=== PATIENT | male | born 1975 | race Caucasian/White ===

== ENCOUNTER → 2020-05-13 09:13 | Outpatient (CLI) | payer OTHER, SELFPAY ==
--- NOTE | ~2020-05-13 | XR_ITS ---
EXAMINATION: XR abdomen/kub 1V DATE: 05/13/2020 09:57 INDICATION: Abdominal pain. TECHNIQUE: A supine view of the abdomen on 2 radiographs was obtained. COMPARISON: None. FINDINGS: There are no dilated loops of bowel. There is a small volume of stool in the colon. There a re surgical clips from right inguinal hernia repair. IMPRESSION: 1. Normal bowel gas pattern. Reviewed, dictated and finalized at location B.
--- NOTE | ~2020-05-13 | US_ITS ---
EXAMINATION: US abdomen complete EXAM DATE: 05/13/2020 09:57 INDICATION: Abdominal pain, fullness. Rule out mass. TECHNIQUE: Multiple grayscale and Doppler images of the complete abdomen were obtained (by a technolo gist who performed the scan) and subsequently reviewed. There is no prior study for comparison. FINDINGS: Scanning was performed and reported area of discomfort, umbilical region. No abnormality i dentified at that location. The abdominal aorta is normal in caliber. Visualized portion IVC is patent. The pancreatic head a nd body are normal in appearance. The pancreatic tail is not visualized. The liver has normal echogenicity and contour. There are no focal liver lesions identified. There is no evidence of intrahepatic biliary duct dilation. Portal venous flow was seen in the hepatopedal , normal direction and has normal Doppler waveform. Common bile duct measures 4 mm, which is normal. The gallbladder wall is normal in thickness, with ex pected amount of distention. No sonographic evidence of pericholecystic fluid. There is no cholelit hiases. Technologist performing exam reports patient did not demonstrate sonographic Lara's sign. Please note that this sign is less reliable in patients who have received pain medication. Right kidney: There is normal contour and echogenicity. It measures 10.1 x 5.2 x 6.3 centimeters. There are no focal renal lesions identified. There is no hydronephrosis. Left kidney: There is normal contour and echogenicity. It measures 11.1 x 6.0 x 5.6 centimeters. T here are no focal renal lesions identified. There is no hydronephrosis. The spleen measures 12.4 centimeters and is morphologically normal. IMPRESSION: 1. Unremarkable complete abdominal ultrasound exam. Reviewed, dictated and finalized at location A.
== END ==
PROVIDERS: PCP Family Medicine; Visit Provider Pediatrics
DX: R10.9 Unspecified abdominal pain (principal)
CPT/HCPCS: 74018; 76700

== ENCOUNTER 2022-08-21 19:50 | Outpatient (CLI) | payer OTHER, SELFPAY ==
--- NOTE | ~2022-08-21 | XR_ITS ---
EXAM: XR forearm LT 2V, XR wrist LT min 3V DATE: 08/21/2022 20:03 (accession [id number]), 08/21/2022 20:04 (accession [id number]) HISTORY: INJ PAIN SWELLING MID TO DISTAL FOREARM ABRASION . COMPARISON: None available. FINDINGS: Normal mineralization. No fracture or dislocation. No lytic or blastic lesion. Joint space s are maintained. No erosion or periosteal change. Soft tissue swelling over the mid and distal forea rm. No radiopaque foreign body detected. IMPRESSION: No acute osseous finding in the left wrist or left forearm. Reviewed, dictated and finalized at location K. OPERATOR IMPRESSION: No acute osseous finding in the left wrist or left forearm.
== END 2022-08-21 19:51 | disposition home or self-care (01) ==
LOC: ANHIMG 19:57
PROVIDERS: PCP Family Medicine; Visit Provider Pediatrics
DX: M79.632 Pain in left forearm (principal)
CPT/HCPCS: 73090; 73110

== ENCOUNTER 2024-03-01 07:00 | Outpatient (NON) | payer OTHER, SELFPAY | END 2024-03-01 07:01 | disposition home or self-care (01) | LOC: ANHLAB 03-02 14:35 | PROVIDERS: PCP Family Medicine; Visit Provider Internal Medicine Gastroenterology | DX: K63.5 Polyp of colon (principal); Z80.0 Family history of malignant neoplasm of digestive organs | CPT/HCPCS: 88305 ==

== ENCOUNTER 2024-03-01 09:21 | Day surgery (SDC) | payer OTHER, SELFPAY ==
[2024-02-24 10:15] VITALS: BMI 29.0
[2024-03-01 09:46] VITALS: BMI 29.2
[2024-03-01 09:47] VITALS: BP 133/95; PULSE 75; RESP 16; TEMP 36.9; O2SAT 99
[2024-03-01] MEDS: LACTATED RINGERS 1,000 ML 150 ML IV CONT (09:56)
--- NOTE | 2024-03-01 09:59 | PM.HPGS ---
History of Present Illness History of Present Illness Consent: Risks, benefits, and alternatives have been discussed and questions answered. Patient agrees to proceed with procedure. Chief complaint: Neoplasm Screening, Family hx of colon cancer Narrative: Rudi Mcclellan is a 49 year old male presents for screening colonoscopy. Patient's current weight appetite and bowel movements are normal. Is any blood in his stools. Has had no abdominal pain. Patient's father had colon cancer. Review of Systems Review of Systems: All systems reviewed & are unremarkable except as noted in HPI and below [facility] Social History Social History (System 02/10/24 @ 09:33 by [place]) Smoking status: Never smoker Alcohol intake: current Alcohol use details: rarely Substance use: never Substance use type: does not use Do You Feel Safe in your Home?: Yes Lack of Transportation: YES Lack of Food: Never True Current Housing: I Have Housing Concerned About Future Housing: No Difficulty Paying Gas/Electric Bills: No Difficulty Paying for Meds: No Currently Unemployed: No Education: Bachelor's Degree Difficulty w/ Childcare or Family Care: No Living arrangements: with family Occupation/Education: occupation Gender identity (if verbalized by the patient): Male Spiritual care concerns: No Meds Home Medications and Allergies Allergies Allergy/AdvReac Type Severity Reaction Status Date / Time No Known Allergies Allergy Verified 03/01/24 09:44 Vital Signs Vital Signs - 24 hr 03/01/24 09:47 Temperature 98.4 F Pulse Rate 75 Respiratory Rate 16 Blood Pressure 133/95 H Pulse Oximetry 99 Oxygen Delivery Room Air Exam Narrative: Physical exam reveals patient to be alert. Vital signs stable. HEENT exam is unremarkable. Patient is anicteric. Lungs are clear to auscultation and percussion is without murmur or extra sounds. Abdomen bowel are present soft nontender with no organomegaly. Digital external rectal exam is normal. Assessment and Plan Assessment and plan (1) Family history of colon cancer in father: Code(s): Z80.0 - Family history of malignant neoplasm of digestive organs Status: Acute Assessment and Plan: Father had colon cancer. Suggest screening colonoscopy now and consider this at 5 year intervals.
--- NOTE | 2024-03-01 10:02 | P.PNAN_ITS ---
Anes - Initial Pre Proc Eval Procedure: Operation Date: 03/01/24 11:00 Proposed Procedures p Screening Colonoscopy - Justin Colon MD Date/Time: 03/01/24 10:02 Surgeon: Justin Colon MD Pre Op Diagnosis: Neoplasm Screening, Family hx of colon cancer Patient Data Age: 49 Gender: M Height: 1.85 m Weight: 100.4 kg Last Vital Signs Temp 36.9 C 03/01/24 09:47 Pulse 75 03/01/24 09:47 Resp 16 03/01/24 09:47 BP 133/95 H 03/01/24 09:47 Pulse Ox 99 03/01/24 09:47 O2 Del Method Room Air 03/01/24 09:47 Allergies Allergy/AdvReac Type Severity Reaction Status Date / Time No Known Allergies Allergy Verified 03/01/24 09:44 Patient hx anesthesia problems: none Family hx anesthesia problems: none Results Review: All pre-operative results and documents have been reviewed as part of the pre- operative evaluation. [facility] Past Medical History Medical History (Updated 03/01/24 @ 10:02 by Varun Mora MD) Overweight Surgical History Surgical History (Updated 03/01/24 @ 10:03 by Varun Mora MD) H/O hernia repair S/P repair of hydrocele Social History Social History Smoking status: Never smoker Alcohol intake: current Alcohol use details: rarely Substance use: never Substance use type: does not use Do You Feel Safe in your Home?: Yes Lack of Transportation: YES Lack of Food: Never True Current Housing: I Have Housing Concerned About Future Housing: No Difficulty Paying Gas/Electric Bills: No Difficulty Paying for Meds: No Currently Unemployed: No Education: Bachelor's Degree Difficulty w/ Childcare or Family Care: No Living arrangements: with family Occupation/Education: occupation Gender identity (if verbalized by the patient): Male Spiritual care concerns: No Anes - Eval Final PreProcedure Day of Procedure 03/01/24 10:02 Patient weight: overweight Heart: regular rate and rhythm Lungs: clear to auscultation Airway: Mallampati scale class II Neurological: alert and oriented Last oral intake: >/= 8 hours ASA classification: II Emergent: no Anesthetic plan: proceed Anesthesia type and monitoring: general GIVS and standard monitoring Results Review: All pre-operative results and documents have been reviewed as part of the pre- operative evaluation. Informed Consent: The patient's anesthetic plan and its attendant risks and benefits were discussed with the patient/family/POA. Questions were solicited and answers provided to the satisfaction of the patient/family/POA.
[2024-03-01 11:18] VITALS: BP 124/84; PULSE 60; RESP 16; O2SAT 96
[2024-03-01 11:28] VITALS: BP 118/85; PULSE 63; RESP 16; O2SAT 98
--- NOTE | 2024-03-01 11:31 | WPDANESPN ---
Anes - Prog Note Post-Op Date/Time: 03/01/24 11:31 Cardiovascular status: normal Respiratory status: normal Airway patency: baseline Mental status: baseline Post-Op hydration status: normal Vital Signs: Last Vital Signs Temp 36.9 C 03/01/24 09:47 Pulse 63 03/01/24 11:28 Resp 16 03/01/24 11:28 BP 118/85 03/01/24 11:28 Pulse Ox 98 03/01/24 11:28 O2 Del Method Room Air 03/01/24 11:28 Pain Score (VAS): 0/10 I/O: Intake & Output 02/29/24 03/01/24 03/01/24 23:59 07:59 15:59 Intake Total 450 Balance 450 Patient Feedback: Patient satisfied with anesthetic care.
[2024-03-01 11:38] VITALS: BP 125/89; PULSE 63; RESP 18; O2SAT 97
== END 2024-03-01 11:42 | disposition home or self-care (01) ==
PROVIDERS: PCP Family Medicine; Visit Provider Internal Medicine Gastroenterology
PROC: 0DJD8ZZ Inspection of Lower Intestinal Tract, Via Natural or Artificial Opening Endoscopic (ICD-10-PCS; CPT 45378; principal; 2024-03-01 11:00)
DX: Z12.11 Encounter for screening for malignant neoplasm of colon (principal); D12.5 Benign neoplasm of sigmoid colon; K64.8 Other hemorrhoids
CPT/HCPCS: 45385

== ENCOUNTER 2024-10-01 12:10 | Outpatient (CLI) | payer OTHER, SELFPAY ==
--- NOTE | ~2024-10-01 | XR_ITS ---
XR chest 2V Ordering provider: Janny Mcclellan MD History: 49 years Male with . Chest pain, shortness of breath . Comparison: None. FINDINGS: MEDIASTINUM: The cardiac silhouette is not enlarged. LUNGS: No infiltrates, effusions or pneumothorax. OTHER: No free air under the diaphragm. IMPRESSION: No acute cardiopulmonary pathology. Reviewed, dictated and finalized at location A. ER RELATIONSHIP MANAGER
== END 2024-10-01 12:11 | disposition home or self-care (01) ==
PROVIDERS: PCP Family Medicine; Visit Provider Pediatrics
DX: R07.9 Chest pain, unspecified (principal); R06.02 Shortness of breath
CPT/HCPCS: 71046

== ENCOUNTER 2024-10-29 15:38 | Outpatient (CLI) | payer OTHER, SELFPAY ==
--- NOTE | ~2024-10-29 | XR_ITS ---
Exam: Abdomen 1V HISTORY: N20.0 - Calculus of kidney COMPARISON: 05/13/2020 TECHNIQUE: Supine images of the abdomen FINDINGS: Bowel gas pattern is non-obstructive. There is no free air or deep sulci. No pathologic calcifications are seen, specifically projecting over the expected regions of the bilat eral kidneys. Lung bases are unremarkable. Bones and soft tissues are unremarkable. IMPRESSION: Nonspecific, nonobstructive bowel gas pattern. No calcifications projecting over the expected regions of the bilateral kidneys, as detailed above. Reviewed, dictated and finalized at location A. ATIENT DIETITIAN IMPRESSION: Nonspecific, nonobstructive bowel gas pattern. No calcifications projecting over the expected regions of the bilateral kidneys , as detailed above.
== END 2024-10-29 15:39 | disposition home or self-care (01) ==
LOC: MICIMG 15:38
PROVIDERS: PCP Family Medicine; Visit Provider Family Medicine
DX: N20.0 Calculus of kidney (principal)
CPT/HCPCS: 74018